=== PATIENT | female | born 2000 | race Asian ===

== ENCOUNTER 2018-08-20 01:33 | Inpatient (IN) | payer OTHER ==
[~2018-08-20] VITALS: Ht 162.6 cm; Wt 83.0 kg
[~2018-08-20 01:33] MED LIST: DICL500C PO; DOCU-131 PO; FERR324T8 PO; IBUP-1222 PO
[2018-08-20] MEDS ORDERED: D5%-LACTATED RINGERS 1,000 ML IV SCH (01:47)
[2018-08-20] MEDS ORDERED: OXYTOCIN 30U/ 0.9% NaCL 500ML 500 ML IV ONE (01:47)
[2018-08-20] MEDS ORDERED: OXYTOCIN 30U/ 0.9% NaCL 500ML 500 ML ONE (01:51)
[2018-08-20] MEDS ORDERED: NEWBORN KIT ONE (01:51)
[2018-08-20] MEDS ORDERED: FENTANYL PF 100 MCG/2ML IVPush PRN (02:00)
[2018-08-20] MEDS ORDERED: ONDANSETRON 2MG/ML, 2ML IVPush PRN (02:00)
[2018-08-20] MEDS ORDERED: SODIUM CITRATE/CITRIC ACID 30 ML UDC PO PRN (02:00)
[2018-08-20] MEDS ORDERED: TERBUTALINE 1 MG/ML, 1ML IVPush PRN (02:00)
[2018-08-20] MEDS ORDERED: CALCIUM CARBONATE 500 MG TAB.CHEW PO PRN (02:00)
[2018-08-20] MEDS ORDERED: METOCLOPRAMIDE 5 MG/ML, 2ML IVPush PRN (02:00)
[2018-08-20] MEDS ORDERED: FENTANYL PF 100 MCG/2ML IV PRN (02:00)
[2018-08-20 02:25] LABS: BASOPHILS # (AUTO) 0.04 x10^3/uL (0-0.3); BASOPHILS % (AUTO) 0 % (0-1); EOSINOPHILS % (AUTO) 1 % (1-7); LYMPHOCYTES # (AUTO) 1.97 x10^3/uL (1-6.1); LYMPHOCYTES % (AUTO) 18 % (22-44); MD NO; MEAN CORPUSCULAR HEMOGLOBIN 28.3 pg (27.0-34.8); MEAN CORPUSCULAR HGB CONC 33.6 g/dL (32.4-35.8); MEAN CORPUSCULAR VOLUME 84.2 fL (80-100); MEAN PLATELET VOLUME 7.9 fL (7.4-10.4); MONOCYTES # (AUTO) 0.57 x10^3/uL (0-1.4); MONOCYTES % (AUTO) 5 % (2-9); NEUTROPHILS # (AUTO) 8.02 x10^3/uL (1.8-8.0); NEUTROPHILS % (AUTO) 75 % (42-75); PLATELET COUNT 388 x10^3/uL (130-400); RED BLOOD COUNT 4.21 x10^6/uL (3.82-5.3); RED CELL DISTRIBUTION WIDTH 15.4 % (9.6-15.2)
[2018-08-20] MEDS ORDERED: PLEASE ENTER HEIGHT AND WEIGHT MC SCH (02:30)
[2018-08-20] MEDS: LACTATED RINGERS 1,000 ML IV SCH ×2 (02:30→09:47)
[2018-08-20 02:38] VITALS: BP 135/81
[2018-08-20] MEDS ORDERED: FENTANYL PF 100 MCG/2ML ONE (03:06)
[2018-08-20] MEDS ORDERED: OXYTOCIN 30U/ 0.9% NaCL 500ML 500 ML IV SCH (04:42)
[2018-08-20] MEDS ORDERED: METOCLOPRAMIDE 5 MG/ML, 2ML IV PRN (05:00)
[2018-08-20] MEDS ORDERED: BISACODYL 10 MG SUPP PR PRN (05:00)
[2018-08-20] MEDS ORDERED: DOCUSATE 100 MG CAPSULE PO PRN (05:00)
[2018-08-20] MEDS ORDERED: GLYCERIN ADULT SUPP PR PRN (05:00)
[2018-08-20] MEDS ORDERED: MISOPROSTOL 200 MCG TABLET PR PRN (05:00)
[2018-08-20] MEDS ORDERED: ACETAMINOPHEN 325 MG TABLET PO PRN (05:00)
[2018-08-20] MEDS ORDERED: ONDANSETRON 2MG/ML, 2ML IV PRN (05:00)
[2018-08-20] MEDS ORDERED: OXYcodone/APAP 5/325MG TABLET PO PRN ×2 (05:00)
[2018-08-20 06:05] VITALS: BP 118/73
[2018-08-20 07:30] VITALS: BP 118/68
[2018-08-20] MEDS: IBUPROFEN 600 MG TABLET PO PRN ×2 (10:28→17:37)
[2018-08-20] MEDS: PRENATAL VIT/IRON/FA 1 EACH TABLET PO SCH (10:28)
[2018-08-20 12:06] LABS: BASOPHILS # (AUTO) 0.03 x10^3/uL (0-0.3); BASOPHILS % (AUTO) 0 % (0-1); EOSINOPHILS # (AUTO) 0.05 x10^3/uL (0-0.8); EOSINOPHILS % (AUTO) 0 % (1-7); LYMPHOCYTES # (AUTO) 1.69 x10^3/uL (1-6.1); LYMPHOCYTES % (AUTO) 12 % (22-44); MD NO; MEAN CORPUSCULAR HEMOGLOBIN 28.8 pg (27.0-34.8); MEAN CORPUSCULAR HGB CONC 34.1 g/dL (32.4-35.8); MEAN CORPUSCULAR VOLUME 84.5 fL (80-100); MEAN PLATELET VOLUME 7.8 fL (7.4-10.4); MONOCYTES # (AUTO) 0.76 x10^3/uL (0-1.4); MONOCYTES % (AUTO) 6 % (2-9); NEUTROPHILS # (AUTO) 11.25 x10^3/uL (1.8-8.0); NEUTROPHILS % (AUTO) 82 % (42-75); PLATELET COUNT 355 x10^3/uL (130-400); RED BLOOD COUNT 3.66 x10^6/uL (3.82-5.3)
[2018-08-20 12:30] VITALS: BP 103/67
[2018-08-20 16:18] VITALS: BP 106/56
[2018-08-20] MEDS ORDERED: MEASLES,MUMPS&RUBELLA VACC/PF 0.5 ML SQ-VACC ONE (17:00)
[2018-08-20 20:00] VITALS: BP 96/59
[2018-08-21] VITALS: BP 105/61
[2018-08-21 07:25] VITALS: BP 108/72
[2018-08-21] MEDS: IBUPROFEN 600 MG TABLET PO PRN (08:33)
[2018-08-21] MEDS: PRENATAL VIT/IRON/FA 1 EACH TABLET PO SCH (08:33)
[2018-08-21] MEDS ORDERED: DOCU-131 PO (09:43)
[2018-08-21] MEDS ORDERED: IBUP-1222 PO (09:43)
== END 2018-08-21 10:25 | disposition home or self-care (01) | DRG 807 ==
LOC: LDOP 01:33 → LDIP 01:48 → 2NW 05:53
PROVIDERS: ADMIT Obstetrics & Gynecology; ATTEND Obstetrics & Gynecology
PROC: 10E0XZZ Delivery of Products of Conception, External Approach (ICD-10-PCS; principal; 2018-08-20)
PROC: 0HQ9XZZ Repair Perineum Skin, External Approach (ICD-10-PCS; 2018-08-20)
PROC: 10907ZC Drainage of Amniotic Fluid, Therapeutic from Products of Conception, Via Natural or Artificial Opening (ICD-10-PCS; 2018-08-20)
DX: O99.52 Diseases of the respiratory system complicating childbirth (principal); Z37.0 Single live birth; Z3A.39 39 weeks gestation of pregnancy; J45.909 Unspecified asthma, uncomplicated; O70.0 First degree perineal laceration during delivery; F32.9 Major depressive disorder, single episode, unspecified; O99.344 Other mental disorders complicating childbirth; Z23 Encounter for immunization
CPT/HCPCS: 36415; 85025; 86850; 86900; 90656; G0378; J2590; J7120